=== PATIENT | female | born 1985 | race Caucasian/White ===

== ENCOUNTER 2019-09-26 21:38 | Emergency (ER) | payer MEDICAID ==
[~2019-09-26] VITALS: Ht 165.1 cm; Wt 63.5 kg
[~2019-09-26 21:38] MED LIST: PREN-385 PO
[2019-09-26 22:02] VITALS: BP 135/86
--- NOTE | 2019-09-26 22:05 | NUR ---
PT TAKEN BACK TO LOBBY
--- NOTE | 2019-09-26 23:29 | NUR ---
PT AMBULATED TO ER BED 7
--- NOTE | 2019-09-26 23:50 | NUR ---
PT 34 Y/O FEMALE BIB SELF FOR C/O GENERALIZED BODY ACHES, PAINFUL URINATION, AND GTA-[id number]-[id number] COUGH X "A FEW DAYS". WA RESPIRATIONS ARE EVEN AND UNLABORED. CRACKLES NOTED IN BILAT UPPER LOBES. PT STATES SHE HAS A DRY COUGH NON-PRODUCTIVE. PT STATES HER PAIN IS A 7/10 GENERALIZED "ALL OVER". PT DENIES N/V/D, BUT ADMITS TO DECREASE IN APPITTITE. SKIN IS WARM AND DRY TO TOUCH. BED IN LOWEST POSITION AND LOCKED IN PLACE. MED HX: NONE ALLERGIES: NKA
--- NOTE | 2019-09-27 00:01 | NUR ---
FLU SWAB OBTAINED TO LAB
[2019-09-27] MEDS ORDERED: KETOROLAC 60 MG/2 ML VIAL IM ONE (00:35)
--- NOTE | 2019-09-27 01:00 | NUR ---
Patient discharged with v/s stable. Written and verbal after care instructions given and explained. Patient alert, oriented and verbalized understanding of instructions. Ambulatory with steady gait. All questions addressed prior to discharge. ID band removed. Patient advised to follow up with PMD. Rx of MOTRIN, PROMETHAZINE, TAMIFLU given. Patient educated on indication of medication including possible reaction and side effects. Opportunity to ask questions provided and answered. Addendum: 09/27/19 at 0127 by [email or web address] Patient discharged with v/s stable. Written and verbal after care instructions given and explained. Patient alert, oriented and verbalized understanding of instructions. Ambulatory with steady gait. All questions addressed prior to discharge. ID band removed. Patient advised to follow up with PMD. Rx of MOTRIN, PROMETHAZINE, TAMIFLU, BACTRIM given. Patient educated on indication of medication including possible reaction and side effects. Opportunity to ask questions provided and answered.
[2019-09-27 01:04] VITALS: BP 135/86
== END 2019-09-27 01:00 | disposition home or self-care (01) ==
LOC: MED 21:38
DX: J10.1 Influenza due to other identified influenza virus with other respiratory manifestations (principal); N39.0 Urinary tract infection, site not specified; Z79.899 Other long term (current) drug therapy
CPT/HCPCS: 87804; 96372; 99283; J1885